=== PATIENT | male | born 1970 | race Hispanic/Latino ===

== ENCOUNTER 2021-04-07 17:42 | Emergency (ER) | payer OTHER ==
[~2021-04-07] VITALS: Ht 167.6 cm; Wt 87.1 kg
[2021-04-07] MEDS ORDERED: PIPERACILLIN/TAZOBACTAM 3.375 GM in SODIUM CHLORIDE 0.9% 50ML 50 ML IV STA (17:52)
[2021-04-07] MEDS ORDERED: SODIUM CHLORIDE 0.9% 1000ML 1,000 ML IV STA (17:52)
[2021-04-07] MEDS ORDERED: ACETAMINOPHEN 325 MG TAB PO STA (17:52)
[2021-04-07] MEDS ORDERED: PIPERACILLIN/TAZOBACTAM 2.25 GM in SODIUM CHLORIDE 0.9% 50ML 50 ML IV STA (17:58)
[2021-04-07] MEDS ORDERED: PIPERACILLIN/TAZOBACTAM SOD 2.25 GM VIAL ONE (18:04)
[2021-04-07] MEDS ORDERED: SODIUM CHLORIDE 0.9% 50ML 50 ML ONE ×2 (18:04→18:06)
[2021-04-07] MEDS ORDERED: IOPAMIDOL 370 MG/ML 200 ML INFUS..BTL INJ ONE (18:06)
[2021-04-07] MEDS ORDERED: ACETAMINOPHEN 325 MG TAB ONE (18:14)
[2021-04-07] MEDS ORDERED: SODIUM CHLORIDE 0.9% 1000ML 1,000 ML ONE (18:14)
[2021-04-07] MEDS ORDERED: AZITHROMYCIN250 MG PO (19:11)
[2021-04-07 19:25] VITALS: BP 104/55
== END 2021-04-07 19:25 | disposition home or self-care (01) ==
LOC: FSED 17:47
DX: H92.01 Otalgia, right ear (principal)
CPT/HCPCS: 71046; 80053; 85025; 99284; J2543; J7030; Q9967